=== PATIENT | male | born 1935 | race Caucasian/White ===

== ENCOUNTER 2018-06-16 15:27 | Inpatient (IN) | payer OTHER ==
[2018-06-08 08:31] LABS: HEMATOCRIT 42.1 % (42.0-52.0); HEMOGLOBIN 14.6 gm/dL (14.0-18.0); MCH 31.5 pg (26.0-34.0); MCHC 34.6 g/dL (28.0-37.0); MCV 91.1 fL (80.0-100.0); RBC 4.62 mil/uL (4.50-6.00); RDW 13.1 % (10.5-14.5); WBC 6.2 thou/uL (4.0-11.0)
[2018-06-08 08:32] LABS: URINE BILIRUBIN NEGATIVE (Negative); URINE BLOOD NEGATIVE (Negative); URINE CLARITY CLEAR; URINE COLOR YELLOW; URINE GLUCOSE-RANDOM* NEGATIVE (Negative); URINE KETONES NEGATIVE (Negative); URINE LEUKOCYTES-REFLEX NEGATIVE (Negative); URINE NITRITE-REFLEX NEGATIVE (Negative); URINE PROTEIN (DIPSTICK) NEGATIVE (Negative); URINE SPECIFIC GRAVITY >= 1.030 (1.005-1.035); URINE UROBILINOGEN 0.2 E.U./dl (0.2-1.0)
[2018-06-08 08:38] LABS: ALBUMIN 3.7 g/dL (3.4-5.0); CALCIUM 9.1 mg/dL (8.5-10.1); CREATININE 1.2 mg/dL (0.7-1.3); POTASSIUM 3.8 mmol/L (3.5-5.1)
[2018-06-08 08:42] LABS: PROTIME 10.3 Seconds (9.3-11.4)
[~2018-06-16] VITALS: Ht 177.8 cm; Wt 89.4 kg
--- NOTE | ~2018-06-16 | O ---
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 PROCEDURE: Left total knee arthroplasty. SURGEON: Dre Jackson MD INDICATIONS: This healthy, active 83-year-old gentleman has progressive degenerative osteoarthritis in multiple joints. He underwent right total knee replacement in the past with good result. He is here for left total knee replacement. At this point, the left knee demonstrates about a 15 degree flexion contracture and moderate varus malalignment with significant pain and crepitus on range of motion. Clinical and radiographic findings are consistent with severe end-stage degenerative osteoarthritis. He and family understand treatment options and relative risks and benefits. They wished to go ahead with left total knee replacement. DESCRIPTION OF PROCEDURE: The patient was taken to the operating room where he was placed under general anesthesia. A femoral nerve block was also applied. Prophylactic intravenous antibiotics were administered. The left knee and leg were meticulously prepped and draped and a thigh tourniquet inflated to 300 mmHg. An anterior longitudinal skin incision was made and carried through the medial retinaculum. The patella was reflected laterally. Moderate degenerative change in all 3 compartments was noted. The [employer] knee system was utilized. Intramedullary guides were used on both the femur and the tibia. The femur was cut in 5 degrees of valgus and the tibia cut perpendicular to long axis of the bone. Sufficient bone was resected to correct the flexion contracture and allow correction of the varus malalignment. The femur was best suited for a size 5 femoral component. The tibia was also best suited for a size 5 tibial component. A 10 mm polyethylene insert seated nicely and resulted in good alignment and range of motion. There was full knee extension and flexion beyond 135 degrees with good stability. The patellar surface was resected and a 35 mm patellar button seemed to fit nicely. Appropriate anchor holes were created. The patellar tracks nicely and seems to be stable. [address] [address] OPERATIVE REPORT Name: JOHN ARELLANO Room #: 418-P [facility].#: [id number] Admission: 06/30/18 Attend Phys: Dre Jackson MD Discharge: Date of : 39 Report #: [id number] The trial components were removed. The bony surfaces were thoroughly irrigated and dried. The intramedullary canal was blocked with bone block on both the femoral and tibial sides. Methyl methacrylate cement was mixed and injected into the porous surface of the proximal tibia. The [employer]hew size 5 tibial baseplate was inserted impacting this into appropriate position and seated nicely and appeared to be secure. Excess cement was removed around its margin. A 10 mm polyethylene cruciate retaining insert was then applied. This was snapped into position. It also seated nicely and appeared to be secure. The [employer]hew left size 5 cruciate retaining femoral component was impacted on the distal femur. This also seated nicely and appeared to be secure. A 35 mm patellar button was cemented into place using appropriate anchor holes. A patellar clamp was used until the cement had hardened. All excess cement was removed from the margin of this implant as well. Once the cement was firm, range of motion, alignment and stability were assessed and felt to be satisfactory, there is full knee extension and flexion beyond 140 degrees and the patella tracks nicely and appears to be stable. The tourniquet was deflated after a total tourniquet time of 50 minutes. Good hemostasis was confirmed. A single Hemovac was left in the wound exiting through a separate stab incision. The fascia was closed with multiple #1 Vicryl sutures. The subcutaneous tissues were closed with 0 Monocryl. The skin was closed with skin nini. A sterile dressing was applied. The patient was awakened and returned to recovery room in good condition. <ELECTRONICALLY SIGNED> By: Dre Jackson MD 07/01/18 [id number] Dre Jackson MD /nt
--- NOTE | ~2018-06-16 | D ---
[facility] [place] [address] DISCHARGE SUMMARY Name: JOHN ARELLANO Room #: 224-P [facility] IN M.R.#: [id number] Admission: 06/30/18 Attend Phys: Dre Jackson MD Discharge: 07/02/18 Date of : 39 Report #: [id number] THIS REPORT FOR: //name// CC: Brenden Murphy DATE OF SERVICE: 07/02/2018 FINAL DIAGNOSIS: End-stage degenerative osteoarthritis, left knee. OPERATIVE PROCEDURE: Left total knee arthroplasty. HISTORY: This 83-year-old gentleman has problems with progressive degenerative osteoarthritis in both knees. He has presented at this time for total knee replacement. HOSPITAL COURSE: The patient was taken to the operating room on 06/30/2018 and underwent left total knee arthroplasty. He tolerated this well. Postoperatively, he was able to advance to a regular diet and advance from IV analgesics to oral analgesics. He participated with physical therapy and made good progress. The dressing is dry. He has full knee extension and flexion to about 110 degrees with satisfactory stability. He has made good progress with physical therapy and seems safe and sufficiently independent with a walker for balance. He is anxious for hospital discharge today. DISCHARGE MEDICATIONS: Include Xarelto 10 mg q. day and hydrocodone 10/325 mg 1 tablet q. 4-6 hours p.r.n. pain. He will continue with the gentle exercise program at home. I have asked him to call should there be any problems or questions. I will plan to see him back in my office in 1 week for followup. <ELECTRONICALLY SIGNED> By: Dre Jackson MD 07/04/18 0739 [id number] [id number] Dre Jackson MD /nt
[~2018-06-16 15:27] MED LIST: ALEVE220 MG PO; ASPIR 8181 MG PO; AVODART0.5 MG PO; CENTRUM SILVER1 EAC2 PO; COLACE100 MG PO; HYDROCODONE-AP1 EAC6 PO; IBUPROFEN 200200 M1 PO; IRON325 PO; MELOXICAM7.5 MG PO; MOBIC7.5 MG PO; QUINAPRIL 20 MG20 MG PO; SIMVASTATIN40 MG PO; TOPROL XL25 MG PO; TYLENOL325 MG PO; XARELTO10 M1 PO
[2018-06-30 07:30] VITALS: BP 162/79
[2018-06-30 16:42] VITALS: BP 115/51
[2018-06-30 20:35] VITALS: BP 110/52
[2018-07-01 03:50] VITALS: BP 124/50
[2018-07-01 06:48] LABS: HEMATOCRIT 32.7 % (42.0-52.0); HEMOGLOBIN 11.3 gm/dL (14.0-18.0); MCH 31.7 pg (26.0-34.0); MCHC 34.5 g/dL (28.0-37.0); MCV 91.8 fL (80.0-100.0); RBC 3.57 mil/uL (4.50-6.00); RDW 12.6 % (10.5-14.5); WBC 9.2 thou/uL (4.0-11.0)
[2018-07-01 07:06] VITALS: BP 123/48
[2018-07-01 08:05] LABS: CALCIUM 7.7 mg/dL (8.5-10.1); CREATININE 1.2 mg/dL (0.7-1.3); POTASSIUM 4.1 mmol/L (3.5-5.1)
[2018-07-01 09:56] VITALS: BP 124/50
[2018-07-01 14:04] VITALS: BP 123/48
[2018-07-01 22:09] VITALS: BP 176/83
[2018-07-02] VITALS (7 sets, daily range): BP systolic 123–183; BP diastolic 47–68
[2018-07-02 08:04] LABS: ABSOLUTE NEUTROPHILS 7.5 thou/uL (1.4-8.2); BASOPHILS 0.5 % (0.0-2.0); EOSINOPHILS 0.5 % (0.0-3.0); HEMATOCRIT 29.9 % (42.0-52.0); HEMOGLOBIN 10.4 gm/dL (14.0-18.0); LYMPHOCYTES 7.3 % (24.0-44.0); MCHC 34.9 g/dL (28.0-37.0); MCV 91.8 fL (80.0-100.0); MONOCYTES 10.7 % (1.0-8.0); PLATELET COUNT 135 thou/uL (150-400); RBC 3.26 mil/uL (4.50-6.00); RDW 12.9 % (10.5-14.5); WBC 9.3 thou/uL (4.0-11.0)
[2018-07-02 08:23] LABS: ALBUMIN 2.7 g/dL (3.4-5.0); CALCIUM 8.3 mg/dL (8.5-10.1); CREATININE 1.1 mg/dL (0.7-1.3); MAGNESIUM 2.2 mg/dL (1.8-2.4); TOTAL BILIRUBIN 0.8 mg/dL (<0.1-1.0); TOTAL PROTEIN 6.3 g/dL (6.4-8.2)
== END 2018-07-02 15:00 | disposition home health service (06) | DRG 469 ==
LOC: PRE 15:27 → 4E 06-30 05:33 → TBA 06-30 05:33 → PRE 06-30 05:45 → 4E 06-30 07:49 → PRE 06-30 10:15 → SICU 07-01 17:59
PROVIDERS: Nurse Practitioner; Orthopaedic Surgery
PROC: 0SRD0J9 Replacement of Left Knee Joint with Synthetic Substitute, Cemented, Open Approach (ICD-10-PCS; principal; 2018-06-30)
DX: M17.12 Unilateral primary osteoarthritis, left knee (principal); E43 Unspecified severe protein-calorie malnutrition; I10 Essential (primary) hypertension; E78.5 Hyperlipidemia, unspecified; I25.10 Atherosclerotic heart disease of native coronary artery without angina pectoris; Z95.1 Presence of aortocoronary bypass graft; Z87.891 Personal history of nicotine dependence; Z88.2 Allergy status to sulfonamides; Z23 Encounter for immunization; Z79.899 Other long term (current) drug therapy
CPT/HCPCS: 10783; 15002; 50010; 50101; 50415; 50954; 51130; 51225; 51412; 51771; 53364; 56525; 57103; 57104; 57180; 62110; 62900; 64043; 65060; 70005

== ENCOUNTER → 2021-04-30 | Outpatient (CLI) | payer OTHER | LOC: SJCVC 14:45 | PROVIDERS: ATTEND Internal Medicine | DX: I44.0 Atrioventricular block, first degree (principal); R00.1 Bradycardia, unspecified; I25.10 Atherosclerotic heart disease of native coronary artery without angina pectoris; I10 Essential (primary) hypertension; E78.5 Hyperlipidemia, unspecified; G47.33 Obstructive sleep apnea (adult) (pediatric); Z95.1 Presence of aortocoronary bypass graft; Z79.82 Long term (current) use of aspirin; Z79.899 Other long term (current) drug therapy; Z87.891 Personal history of nicotine dependence; Z72.89 Other problems related to lifestyle ==

== ENCOUNTER → 2021-10-29 | Outpatient (CLI) | payer OTHER | LOC: SJCVCIMAG 08:55 | PROVIDERS: ATTEND Internal Medicine | DX: I08.8 Other rheumatic multiple valve diseases (principal); I44.0 Atrioventricular block, first degree; R00.0 Tachycardia, unspecified; I25.10 Atherosclerotic heart disease of native coronary artery without angina pectoris; I10 Essential (primary) hypertension; E78.5 Hyperlipidemia, unspecified; G47.33 Obstructive sleep apnea (adult) (pediatric); Z95.1 Presence of aortocoronary bypass graft; I65.23 Occlusion and stenosis of bilateral carotid arteries; I73.9 Peripheral vascular disease, unspecified; Z95.0 Presence of cardiac pacemaker; Z87.891 Personal history of nicotine dependence; Z72.89 Other problems related to lifestyle; Z79.82 Long term (current) use of aspirin; Z79.899 Other long term (current) drug therapy; Z88.2 Allergy status to sulfonamides; Z88.8 Allergy status to other drugs, medicaments and biological substances ==